=== PATIENT | male | born 1990 | race Two or more races ===

== ENCOUNTER 2021-03-01 05:33 | Emergency (ER) | payer OTHER ==
[~2021-03-01] VITALS: Ht 167.6 cm; Wt 81.6 kg
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
[2021-03-01] MEDS ORDERED: IBUPROFEN 400 MG TABLET ONE (06:12)
[2021-03-01] MEDS ORDERED: IBUPROFEN 400 MG TABLET PO ONE (06:30)
--- NOTE | 2021-03-01 06:50 | NUR ---
Patient does not wish to proceed with medical care recommended by Dr. Winkler. Patient given information related to possible complications, up to and including , which could occur as a result of leaving the hospital at this time. Patient verbalizes understanding of risks involved due to leaving against medical advice. Patient refused to sign AMA form.
[2021-03-01 06:57] VITALS: BP 138/87
== END 2021-03-01 06:51 | disposition home or self-care (01) ==
LOC: ER 05:41
DX: S40.012A Contusion of left shoulder, initial encounter (principal); S60.212A Contusion of left wrist, initial encounter; S60.211A Contusion of right wrist, initial encounter; F17.200 Nicotine dependence, unspecified, uncomplicated; V49.49XA Driver injured in collision with other motor vehicles in traffic accident, initial encounter; Y93.89 Activity, other specified; Y92.413 State road as the place of occurrence of the external cause; Y99.8 Other external cause status
CPT/HCPCS: 73030-TC